=== PATIENT | male | born 2000 | race Two or more races ===

== ENCOUNTER 2023-07-29 14:29 | Emergency (ER) | payer MEDICAID ==
[~2023-07-29] VITALS: Ht 170.2 cm; Wt 59.0 kg
[2023-07-29 15:27] VITALS: BP 127/64; TEMP 98.4
[2023-07-29] MEDS ORDERED: ERYT3.5O9 EACHEYE (16:27)
[2023-07-29] MEDS ORDERED: IMIQ1CRE11 TP (16:27)
[2023-07-29 16:35] VITALS: O2SAT 97
== END 2023-07-29 16:36 | disposition home or self-care (01) ==
LOC: ER 14:29
DX: A63.0 Anogenital (venereal) warts (principal); H10.9 Unspecified conjunctivitis; Z60.2 Problems related to living alone